=== PATIENT | male | born 1990 | race Caucasian/White ===

== ENCOUNTER 2023-03-23 20:34 | Emergency (ER) | payer BC, OTHER ==
[~2023-03-23] VITALS: Ht 187.9 cm; Wt 133.0 kg
[~2023-03-23 20:34] MED LIST: CEPH500C PO; HYDR1CAP2 PO
--- NOTE | 2023-03-23 20:45 | ED Integumentary General ---
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 He has couple small puncture wounds and abrasions. He is unsure of his last tetanus. No other injuries Allergies and Home Medications Allergies Coded Allergies: No Known Drug Allergies (Unverified , 01/01/11) Patient Home Medication List Home Medication List Reviewed: Yes Cephalexin Monohydrate (Cephalexin) 500 Mg Capsule, 1 EACH PO QID Prescribed by: IRISH TREVINO on 01/01/11928 Hydrocodone Bit/Acetaminophen (Hydrocodone-Apap 5-500 Cap) 1 Each Capsule, 1 EACH PO Q 4 - 6 HRS PRN Prescribed by: IRISH TREVINO on 01/01/11928 Review of Systems Review of Systems Constitutional: no symptoms reported; No chills EENTM: no symptoms reported Respiratory: no symptoms reported Cardiovascular: no symptoms reported Gastrointestinal: no symptoms reported Genitourinary: no symptoms reported Musculoskeletal: see HPI Skin: see HPI Physical Exam Vital Signs Capillary Refill : General Appearance: WD/WN, no apparent distress Cardiovascular: normal peripheral pulses, regular rate, rhythm Respiratory: lungs clear, normal breath sounds Gastrointestinal: non tender, soft Extremities: normal range of motion, non-tender Neurologic/Psychiatric: alert, normal mood/affect, oriented x 3 Skin Problem Location: upper extremities (Right hand) Skin Problem Character: other (Couple small superficial scratches and couple small puncture wounds) Progress/Results/Core Measures Progress Progress Note : Progress Note Patient with a couple very mild superficial scratches and small puncture wounds that are extensively deep. Discussed prophylactic antibiotics versus watchful waiting with patient. At this time with joint decision-making we will just do watchful waiting. Recommend he keep clean with warm soapy water. Monitor for infection he could use antibiotic ointment as indicated on package if he chooses. Patient is unsure of his last tetanus so we will give him a tetanus booster. Departure Impression Primary Impression: Cat bite of hand Qualified Codes: S61.451A - Open bite of right hand, initial encounter; W55.01XA - Bitten by cat, initial encounter Additional Impression: Cat scratch of hand Qualified Codes: S60.511A - Abrasion of right hand, initial encounter; W55.03XA - Scratched by cat, initial encounter Disposition: HOME, SELF-CARE Condition: Stable Departure-Patient Inst. Referrals: MARLY ELIZABETH MD (PCP/Family) Primary Care Physician Patient Instructions: Animal Bites ED Add. Discharge Instructions: Keep clean with warm soapy water. You may use triple antibiotic, Neosporin or similar [id number] antibiotic cream. Monitor for infection. Follow-up with any concerns DENISE HO DO Mar 23, 2023 20:45
[2023-03-23 20:57] VITALS: BP 165/93
[2023-03-23] MEDS ORDERED: TETANUS,DIPTH,PERTUSS P/F (BOOSTRIX) 0.5 ML VIAL IM ONE (21:00)
== END 2023-03-23 20:57 | disposition home or self-care (01) ==
LOC: EDUNIT# 20:34 → ER FS 20:37
DX: S61.431A Puncture wound without foreign body of right hand, initial encounter (principal); Z23 Encounter for immunization; Z28.310 Unvaccinated for COVID-19; W55.03XA Scratched by cat, initial encounter
CPT/HCPCS: 90715; 99284